=== PATIENT | male | born 1965 | race Caucasian/White ===

== ENCOUNTER 2017-05-08 10:09 | Day surgery (SDC) | payer OTHER ==
[2017-05-08] MEDS ORDERED: diphenhydrAMINE 25 MG CAP PO ONE ×2 (10:15→10:27)
[2017-05-08] MEDS ORDERED: FAMOTIDINE 20 MG TAB PO ONE (10:15)
[2017-05-08] MEDS ORDERED: DIAZEPAM 5 MG TAB PO ONE (10:15)
[2017-05-08] MEDS ORDERED: NS 1,000 ML IV ONE (10:15)
[2017-05-08] MEDS ORDERED: ASPIRIN EC 325 MG TAB PO ONE (10:15)
[2017-05-08] MEDS ORDERED: FAMOTIDINE 20 MG TAB ONE (10:28)
[2017-05-08] MEDS ORDERED: DIAZEPAM 5 MG TAB ONE (10:28)
--- NOTE | 2017-05-08 10:28 | CPEKG ---
Heart Rate: 70 RR Interval: 857 P-R Interval: 164 QRSD Interval: 80 QT Interval: 376 QTC Interval: 406 P [place]: 12 QRS [place]: 20 T Wave [place]: 92 EKG Severity - ABNORMAL ECG - EKG Impression: SINUS RHYTHM EKG Impression: PROBABLE INFERIOR INFARCT, AGE INDETERMINATE EKG Impression: CONSIDER POSTERIOR WALL INVOLVEMENT Electronically Signed By: Simon Sprague 09-May-2017 23:09:30
[2017-05-08] MEDS ORDERED: LIDOCAINE 1% 300 MG/30 ML SDV ONE (10:36)
[2017-05-08] MEDS ORDERED: MIDAZOLAM 2 MG/2 ML VIAL ONE ×4 (10:37→12:34)
[2017-05-08] MEDS ORDERED: IOPAMIDOL (ISOVUE-370) 150 ML BTL IV ONE ×3 (10:37→12:44)
[2017-05-08] MEDS ORDERED: fentaNYL 100 MCG/2 ML INJ ONE ×3 (10:37→12:39)
[2017-05-08 10:46] LABS: % IMMATURE GRANULYOCYTES 0.4 % (0.0-1.1); ABSOLUTE IMMATURE GRANULOCYTES 0.02 10^3/uL (0.00-0.10); ADD DIFF? NO; ADD MORPH? NO; ADD SCAN? NO; ATYPICAL LYMPHOCYTE FLAG 0 (0-99); FRAGMENT RBC FLAG 0 (0-99); HEMATOCRIT 47.5 % (40.0-51.0); HEMOGLOBIN 16.8 g/dL (13.7-17.5); LEFT SHIFT FLG 0 (0-99); LIPEMIA HEMOLYSIS FLAG 90 (0-99); MEAN CELL HEMOGLOBIN 33.2 pg (27.9-34.1); MEAN CELL HEMOGLOBIN CONCENTR. 35.4 g/dL (32.4-36.7); MEAN CELL VOLUME 93.9 fL (81.5-99.8); MEAN PLATELET VOLUME 8.3 fL (8.7-11.7); PLATELET CLUMPS FLAG 0 (0-99); PLATELET COUNT 266 10^3/uL (150-400); RED BLOOD CELL COUNT 5.06 10^6/uL (4.40-6.38); RED CELL DISTRIBUTION WIDTH 11.7 % (11.5-15.2)
--- NOTE | 2017-05-08 10:46 | PDHPUP ---
History & Physical Update H&P update statement: This history and physical update is based on an assessment of the patient which was completed after admission or registration (within 24 hours), but prior to the surgery/procedure. H&P update: H&P reviewed & patient examined, no change in patient's condition since H&P completed
--- NOTE | 2017-05-08 10:46 | PDPROPOC ---
Sedation Plan of Care Sedation Plan of Care: vital signs stable, mental status noted, patient educated of risks, benefits, alternatives, patient can tolerate sedation ASA Classification: ASA 2 Planned drugs: fentanyl, midazolam Mallampati Score: Class 2 Mallampati Reference Image: Patient passed 3-3-2 rule?: Yes
[2017-05-08 10:59] LABS: INR 0.93 (0.83-1.16); PROTIME(PATIENT) 12.7 SEC (12.0-15.0)
[2017-05-08 11:33] LABS: ANION GAP 18 mEq/L (8-16); CALCIUM 10.3 mg/dL (8.5-10.4); CARBON DIOXIDE 23 mEq/l (22-31); CHLORIDE 103 mEq/L (97-110); CHOLESTEROL 243 mg/dL (140-220); CHOLESTEROL/HDL RATIO 4.42 RATIO (1.00-4.97); CREATININE 0.8 mg/dL (0.7-1.3); GLOMERULAR FILTRATION RATE > 60; GLUCOSE 117 mg/dL (70-100); HIGH DENSITY LIPOPROTEIN 55 mg/dL (40-65); MAGNESIUM 1.9 mg/dL (1.6-2.3); NON-HIGH DENSITY LIPOPROTEIN 188 mg/dL (90-129); POTASSIUM 4.3 mEq/L (3.5-5.2); SODIUM 144 mEq/L (134-144)
[2017-05-08 11:34] LABS: TRIGLYCERIDE 446 mg/dL (40-150)
[2017-05-08] MEDS ORDERED: NITROGLYCERIN 0.4 MG BTL SL PRN (13:31)
[2017-05-08] MEDS ORDERED: ONDANSETRON 4 MG/2 ML VIAL IVP PRN (13:31)
[2017-05-08] MEDS ORDERED: ATROPINE SULFATE 1 MG/10 ML SYR IVP PRN (13:31)
[2017-05-08] MEDS ORDERED: clonazePAM 0.5 MG TAB PO PRN (13:32)
[2017-05-08] MEDS ORDERED: TESTOSTERONE IM 100 MG/ML SYRINGE IM SCH (13:45)
--- NOTE | 2017-05-08 20:36 | CPIP ---
[f rep st] INVASIVE CARDIAC PROCEDURE DATE OF PROCEDURE: 05/08/2017 PROCEDURES PERFORMED: 1. Coronary angiography. 2. Left ventricular end-diastolic pressure. 3. Bypass graft angiography. INDICATIONS FOR PROCEDURE: 1. Known coronary artery disease. 2. Chest pain syndrome, concerning for an acute coronary syndrome. ACCESS: The patient was prepped and draped in sterile fashion, 1% lidocaine was used to anesthetize the right inguinal region. A 6-Croatian introducer sheath was placed selectively into the right common femoral artery via modified Seldinger technique. CORONARY ANGIOGRAPHY: A 6-[place]atian JL4 was advanced to the left main coronary artery and images obtain ed. The left main coronary artery bifurcated into an LAD and circumflex coronary arteries. The left main coronary artery appeared normal. The left anterior descending coronary artery is diffusely dis eased. In the proximal vessel, there is a discreet 40% stenosis present. In the midvessel, there is a long segmental 50% to 60% stenosis present. The distal vessel is being filled by a patent VALLE to LAD graft. The circumflex coronary artery is a large vessel. The circumflex coronary artery is dif fusely diseased. In the midvessel, there is a discreet 40% to 50% stenosis present and in the distal vessel there is a discreet 50% to 60% stenosis present. The right coronary artery was not injected as it is noted to be occluded previously. BYPASS GRAFT ANGIOGRAPHY: A 6-[place]ian JR4 was used to engage the saphenous vein graft to OM artery. The saphenous vein graft to OM artery had a proximal 50% stenosis present. This was not flow limitin g, as it was still larger in diameter than the vessel it supplied. A 6-[place]atian JR4 was also used to e ngage the saphenous vein graft to posterior lateral artery. Saphenous vein graft to posterior latera l artery also had a proximal 50% stenosis present. This is not flow limiting as it was greater than the size of the vessel it supplied. A 6-[place]ian JR4 was used to engage the PRETTY to RCA graft. The RI MA to RCA graft was widely patent. A 6-[place]atian JR4 was used to engage the left subclavian artery. Th e 6-Croatian JR4 was then exchanged for 6-Croatian FER catheter. The 6-Croatian FER catheter was used to e ngage the VALLE to LAD graft. The VALLE to LAD graft had 40% to 50% stenosis in the distal anastomosis region. This did not appear to be flow limiting. LEFT VENTRICULAR END-DIASTOLIC PRESSURE: A 6-[place]atian pigtail catheter was advanced into the left vent ricle and left ventricular end-diastolic pressure obtained. The left ventricular end-diastolic press ure was 21 mmHg. LEFT VENTRICULOGRAPHY: Not performed in an effort to spare contrast. COMPLICATIONS: None. CONCLUSIONS: 1. Three-vessel coronary artery disease. 2. Patent bypass grafts to the left anterior descending coronary artery, second obtuse marginal, pos terior lateral, and posterior descending coronary arteries. 3. Elevated left ventricular end-diastolic pressure 21 mmHg. PLAN: Medical management. /[id number]/MODL
[2017-05-08] MEDS ORDERED: NON-FORMULARY NEW DRUG (Fenofibrate [Fenofibrate] 160 MG) PO SCH (21:00)
[2017-05-08] MEDS ORDERED: ATORVASTATIN CALCIUM 40 MG TAB PO SCH (21:00)
[2017-05-09] MEDS ORDERED: LEVOTHYROXINE 150 MCG TAB PO SCH (06:00)
[2017-05-09] MEDS ORDERED: ALPRAZolam 0.5 MG TAB PO SCH (09:00)
[2017-05-09] MEDS ORDERED: LISINOPRIL 20 MG TAB PO SCH (09:00)
[2017-05-09] MEDS ORDERED: Herbals/Supplements -Info Only PO SCH (09:00)
[2017-05-09] MEDS ORDERED: buPROPion XL 150 MG TAB PO SCH (09:00)
[2017-05-09] MEDS ORDERED: ASPIRIN 325 MG TAB PO SCH (09:00)
[2017-05-14] MEDS ORDERED: NON-FORMULARY NEW DRUG (Exenatide Microspheres [Bydureon Pen] 2 MG) SQ SCH (21:00)
== END 2017-05-08 15:44 | disposition home or self-care (01) ==
LOC: FCATH 10:09
PROVIDERS: ATTEND Internal Medicine Cardiovascular Disease
PROC: B2131ZZ Fluoroscopy of Multiple Coronary Artery Bypass Grafts using Low Osmolar Contrast (ICD-10-PCS; principal; 2017-05-08)
PROC: 4A023N7 Measurement of Cardiac Sampling and Pressure, Left Heart, Percutaneous Approach (ICD-10-PCS; principal; 2017-05-08)
DX: I25.810 Atherosclerosis of coronary artery bypass graft(s) without angina pectoris (principal); I10 Essential (primary) hypertension; E11.9 Type 2 diabetes mellitus without complications; E78.5 Hyperlipidemia, unspecified; Z95.1 Presence of aortocoronary bypass graft
CPT/HCPCS: C1760; J1644; J2250; J3010; Q9967

== ENCOUNTER 2017-10-24 07:15 | Inpatient (IN) | payer OTHER ==
[2017-10-24] MEDS ORDERED: ACETAMINOPHEN 500 MG TAB PO ONE (11:18)
[2017-10-24] MEDS ORDERED: GABAPENTIN 300 MG CAP PO ONE (11:18)
[2017-10-24] MEDS ORDERED: ceFAZolin 2 GM/DEXTROSE 100 ML IV ONE (11:18)
[2017-10-24] MEDS ORDERED: LR 1,000 ML IV ONE (11:19)
[2017-10-24] MEDS ORDERED: LIDOCAINE 1% 2 ML INJ ID PRN (11:19)
[2017-10-24] MEDS ORDERED: ceFAZolin 2 GM/SWFI 2 GM/20 ML SYR IVP ONE (11:30)
[2017-10-24] MEDS ORDERED: BUPIVACAINE 0.25% 30 ML SDV ONE (11:42)
[2017-10-24 11:43] LABS: PLATELET COUNT 253 10^3/uL (150-400)
[2017-10-24] MEDS ORDERED: CHLORHEXIDINE GLUC HIBICLENS 118 ML BTL TP ONE (11:43)
[2017-10-24] MEDS ORDERED: BACITRACIN 50,000 UNITS/10 ML SYR IRR ONE (11:43)
[2017-10-24] MEDS ORDERED: THROMBIN (BOVINE) 5,000 UNIT VIAL TP ONE (11:43)
[2017-10-24] MEDS ORDERED: EPINEPHrine 1 MG/ML INJ ONE (11:43)
--- NOTE | 2017-10-24 12:17 | PDANEPAE ---
ANE History of Present Illness l4-l5 tlif ANE Past Medical History - Cardiovascular History Hx Hypertension: Yes Hx Arrhythmias: No Hx Chest Pain: No Hx Coronary Artery / Peripheral Vascular Disease: Yes Hx CHF / Valvular Disease: No Hx Palpitations: No Cardiovascular History Comment: CABG X4 2012. HYPERLIPIDS - Pulmonary History Hx COPD: No Hx Asthma/Reactive Airway Disease: No Hx Recent Upper Respiratory Infection: No Hx Oxygen in Use at Home: No Hx Sleep Apnea: No Sleep Apnea Screening Result - Last Documented: Positive Pulmonary History Comment: DENIES SOB W STAIRS - Neurologic History Hx Cerebrovascular Accident: No Hx Seizures: No Hx Dementia: No - Endocrine History Hx Diabetes: Yes Hypothyroid: Yes Hyperthyroid: No Endocrine History Comment: HYPOTHYROID - Renal History Hx Renal Disorders: No Renal History Comment: KIDNEY STONES - Liver History Hx Hepatic Disorders: No - Neurological & Psychiatric Hx Hx Neurological and Psychiatric Disorders: No Neurological / Psychiatric History Comment: DEPRESSION POST HEART SURG - Cancer History Hx Cancer: No - Congenital Disorder History Hx Congenital Disorders: No - GI History Hx Gastrointestinal Disorders: No - Other Health History Other Health History: PARTIALS LOWER - Chronic Pain History Chronic Pain: No - Surgical History Prior Surgeries: CABG X4 10-11-12. L SHOULDER '12. L ULNAR NERVE TRANSPOSITION. [facility] HERNIA. L ING HERNIA ANE Review of Systems Review of systems is: negative Review of Systems: - Exercise capacity Exercise capacity: >=4 METS METS (RN): 4 METS ANE Patient History - Allergies Allergies/Adverse Reactions: No Known Allergies Allergy (Unverified 10/16/17 17:51) - Home Medications Home Medications: Aspirin [Aspirin 325 mg (*)] 325 mg PO DAILY 03/15/16 [Last Taken 10/17/17] Levothyroxine [Synthroid 150 mcg (*)] 150 mcg PO DAILY06 03/15/16 [Last Taken 04:00] Exenatide Microspheres [Bydureon Pen] 2 mg SQ MO@21 03/21/16 [Last Taken ] FENOFIBRATE 160 mg PO HS 03/21/16 [Last Taken 10/23/17 20:00] ALPRAZolam [Xanax 0.5 MG (*)] 0.25 mg PO DAILY 05/08/17 [Last Taken 10/24/17 04: 00] Atorvastatin Calcium [Lipitor 40 mg (*)] 40 mg PO HS 05/08/17 [Last Taken ] Lisinopril [Zestril 20 mg (*)] 20 mg PO HS 05/08/17 [Last Taken 10/23/17 20:00] Testosterone IM [Testosterone 100mg/ml IM inj (*)] 200 mg IM Q14D 05/08/17 [ Last Taken 09/24/17] buPROPion XL [Wellbutrin Xl] 150 mg PO DAILY 05/08/17 [Last Taken 10/24/17 04:00 ] clonazePAM [Klonopin (*)] 0.5 mg PO HS PRN 05/08/17 [Last Taken 10/23/17 20:00] Metformin HCl [Metformin 1000 mg] 1,000 mg PO DAILY 10/09/17 [Last Taken ] Gabapentin [Neurontin 300 MG (*)] 300 mg PO TID 10/16/17 [Last Taken 10/23/17 20 :00] Herbals/Supplements -Info Only 1 ea PO DAILY 10/16/17 [Last Taken 10/17/17] - NPO status NPO Status: no food or drink >8 hours NPO Since - Liquids (Date): 10/24/17 NPO Since - Liquids (Time): 04:00 NPO Since - Solids (Date): 10/23/17 NPO Since - Solids (Time): 18:00 - Anes Hx Anes Hx: no prior problems - Smoking Hx Smoking Status: Former smoker - Alcohol Use Alcohol Use: Heavy (3/day) - Family Anes Hx Family Anes Hx: none Family Hx Anesthesia Complications: NONE ANE Labs/Vital Signs - Labs Result Diagrams: 10/24/17 11:18 10/24/17 11:18 - Vital Signs Vital Signs: reviewed preoperatively; see RN documention for details Blood Pressure: 137/84 Heart Rate: 73 Respiratory Rate: 20 O2 Sat (%): 94 Height: 175.26 cm Weight: 79.379 kg ANE Physical Exam - Airway Neck exam: FROM Mallampati Score: Class 2 Mouth exam: poor dentition, dentures - Pulmonary Pulmonary: no respiratory distress - Cardiovascular Cardiovascular: regular rate and rhythym - ASA Status ASA Status: III ANE Anesthesia Plan Anesthesia Plan: general endotracheal anesthesia
[2017-10-24] MEDS ORDERED: MIDAZOLAM 2 MG/2 ML VIAL IVP ONE (12:21)
[2017-10-24] MEDS ORDERED: PROPOFOL 200 MG/20 ML VIAL ONE (12:45)
[2017-10-24] MEDS ORDERED: PROPOFOL/EMULSION 500 MG/50 ML BOTTLE IV ONE ×2 (12:45→14:55)
[2017-10-24] MEDS ORDERED: LIDOCAINE 2% 100 MG/5 ML SYR ONE (12:45)
[2017-10-24] MEDS ORDERED: fentaNYL 100 MCG/2 ML INJ ONE ×3 (12:45→16:41)
[2017-10-24] MEDS ORDERED: HYDROmorphONE/DILAUDID 2 MG/ML INJ ONE (12:46)
[2017-10-24] MEDS ORDERED: ROCURONIUM 100 MG/10 ML VIAL ONE (12:47)
[2017-10-24] MEDS ORDERED: KETOROLAC 30 MG/1 ML SDV ONE (15:43)
[2017-10-24] MEDS ORDERED: PROMETHAZINE HCL 25 MG/ML INJ IVP PRN (16:03)
[2017-10-24] MEDS ORDERED: ONDANSETRON 4 MG/2 ML VIAL IVP PRN ×2 (16:03→16:09)
[2017-10-24] MEDS ORDERED: ACETAMINOPHEN 500 MG TAB PO PRN (16:03)
[2017-10-24] MEDS ORDERED: ALBUTEROL 3 ML DEYVIAL IH PRN (16:03)
[2017-10-24] MEDS ORDERED: oxyCODONE IR 5 MG TAB PO PRN (16:03)
[2017-10-24] MEDS ORDERED: NALOXONE HCL 0.4 MG/ML INJ IVP PRN (16:03)
[2017-10-24] MEDS ORDERED: HYDROmorphONE/DILAUDID 2 MG/ML INJ IVP PRN (16:03)
[2017-10-24] MEDS ORDERED: MEPERIDINE 25 MG/0.5 ML AMP IVP PRN (16:03)
--- NOTE | 2017-10-24 16:05 | POSTANESTH ---
Post Anesthetic Evaluation Cardiovascular Status: Normal, Stable Respiratory Status: Normal, Stable Level of Consciousness/Mental Status: Can Participate in Eval Pain Control: Adequate, Prn Tx Ordered Nausea/Vomiting Control: Adequate, Prn Tx Ordered Complications Possibly Related to Anesthesia: None Noted
[2017-10-24] MEDS: fentaNYL 100 MCG/2 ML INJ IVP PRN ×5 (16:08→16:59)
[2017-10-24] MEDS ORDERED: POLYETHYLENE GLYCOL 3350 17 GM PKT PO PRN (16:09)
[2017-10-24] MEDS ORDERED: diphenhydrAMINE 25 MG CAP PO PRN (16:09)
[2017-10-24] MEDS ORDERED: ONDANSETRON DISINTEGRATING 4 MG TAB PO PRN (16:09)
[2017-10-24] MEDS ORDERED: LACTULOSE 20 GM/30 ML UDCUP PO PRN (16:09)
[2017-10-24] MEDS ORDERED: BISACODYL 10 MG SUPP PR PRN (16:09)
[2017-10-24] MEDS ORDERED: METHOCARBAMOL 750 MG TAB PO PRN (16:09)
[2017-10-24] MEDS ORDERED: MAGNESIUM HYDROXIDE 30 ML UDCUP PO PRN (16:09)
--- NOTE | 2017-10-24 16:09 | POSTOPPROG ---
Post Op Note Date of Operation: 10/24/17 Surgeon: Kin David Trimmer And Borer Machine Operator: Sarah Jerry PA-C Anesthesia: GET(General Endotracheal) Pre-op Diagnosis: Lumbar Stenosis with radiculopathy Post-op Diagnosis: same Procedure: Minimally invasive L4/5 Findings: See dicated operative report Inf/Abcess present in the surg proc area at time of surgery?: No Depth: Organ Space EBL: 50-100 Complications: None observed SOAP Progress Note Assessment/Plan: Assessment: Plan: S: Patient in PACU O: NAD, VSS PERRL, EOMI Awake Following commands RIVAS X 4 BLE 5/5 BUE 5/5 Incision c/d/i-dressed A: 51 yo male sp L4/5 TLIF for radiculopathy and lumbar stenosis. P: -Admit to med/surg -Optimize pain management- does not tolerate oxycodone well in the past per pt -PT.OT -Postop x-rays pending -No brace needed -No wright -DVT: TEDs, SCDs, Lovenox ok POD #1 -Dipso- Home tomorrow if doing well and clears therapy 10/24/17 16:06 Objective: Vital Signs Temp Pulse Resp BP Pulse Ox 36.5 C 73 20 137/84 H 94 10/24/17 11:40 10/24/17 12:21 10/24/17 12:21 10/24/17 12:21 10/24/17 12:21 Laboratory Results 10/24/17 11:18 10/24/17 11:18
[2017-10-24] MEDS ORDERED: DIAZEPAM 5 MG/ML 1 ML SYR ONE (16:20)
[2017-10-24] MEDS: DIAZEPAM 5 MG/ML 1 ML SYR IVP PRN ×3 (16:21→16:35)
--- NOTE | 2017-10-24 16:25 | PDMN ---
Medical Necessity Medical necessity: Pt meets INPT criteria per and [facility] [place], [place] S-820 Lumbar Fusion ( IPO surgery).
[2017-10-24] MEDS ORDERED: HYDROmorphONE/DILAUDID 1 MG/ML INJ ONE (16:41)
[2017-10-24] MEDS: HYDROmorphONE/DILAUDID 1 MG/ML INJ IVP PRN ×3 (16:43→17:00)
[2017-10-24] MEDS: HYDROCODONE/APAP 5/325 TAB PO PRN ×2 (17:42→21:52)
--- NOTE | 2017-10-24 17:55 | GOP ---
[f rep st] OPERATIVE REPORT DATE OF OPERATION: 10/24/2017 SURGEON: Kin David MD DIESEL LOCOMOTIVE FIRER/FIREMAN: JACQUES Quiñones ANESTHESIA: General endotracheal. PREOPERATIVE DIAGNOSIS: Spondylolisthesis with severe left lateral recess stenosis at L4-5. POSTOPERATIVE DIAGNOSIS: Spondylolisthesis with severe left lateral recess stenosis at L4-5. PROCEDURE PERFORMED: 1. L4-5 minimally invasive transforaminal lumbar interbody fusion. 2. Placement of interbody device at L4-5. 3. Placement of pedicle screw fixation at L4-5. 4. Complete facetectomy on the left at L4-5. 5. [place] of local autograft. 6. Use of allograft, BMP, and cancellous bone chips. 7. Use of the operative microscope. 8. O arm stereotactic navigation for screw placement. 9. Intraoperative neurophysiologic monitoring, including somatosensory evoked potentials and EMG. FINDINGS: Successful TLIF. SPECIMENS: There were no specimens. ESTIMATED BLOOD LOSS: 50 cc. INDICATIONS: The patient is a 51-year-old man who I saw in clinic with low back pain and some severe left leg pain in L5 distribution. He is found to have spondylolisthesis grade 1 at L4-5 with latera l recess stenosis. We discussed the options and ultimately decided upon a minimally invasive TLIF. DESCRIPTION OF PROCEDURE: After informed consent was obtained from the patient, the patient was brou ght to the operating room and a formal time-out was performed, identifying the patient by name, medic al record number and date of . Preoperative antibiotics were given. The endotracheal tube was placed and general endotracheal anesthesia was smoothly induced. All appropriate leads were placed f or intraoperative neurophysiologic monitoring, including somatosensory evoked potentials and EMG. Th e patient was then turned in the prone position on the Eriberto table and all appropriate pressure poi nts were padded and checked. The lumbar region was then prepped and draped in the normal sterile fas hion. A stab incision was made over the right iliac crest and percutaneous pin for the navigation frame was placed into the iliac crest. An O-arm spin was then obtained showing the relevant anatomy from L3 t o S1, and navigation was then used to plan the lateral Pita-style incisions on both sides with the angle toward the L4-5 pedicles. 10 cc of 0.25% Marcaine with epinephrine was infiltrated in the skin for hemostasis. The left-sided skin incision was then made using a 10 blade and the subcutaneous tissues were dissect ed using monopolar electrocautery. The superficial and deep lumbar fascia were opened and the parasp inous muscles were visualized. The navigated metrics tube was then navigated to the area over the L4 -5 foramen and docked onto the facet joint. Successive dilators were then used to dilate up to 18 mm and a 7 cm x 18 mm quadrant retractor was then placed over the facet joint. Navigation was used to identify the superior and inferior aspects of the foramen, as well as the medial border on the lamina . The muscle was debrided from over the facet joint and the high-speed drill with a 3 mm nita bur was then used to drill troughs just above the L5 pedicle and just below the L4 pedicle. Medially, t he inferior facet of L4 was then disconnected and removed completely. We then drilled off the superi or facet of L5 and the foramen was completely decompressed. Medially, the yellow ligament was remove d, completely decompressing the nerve root in the lateral recess. The exiting L4 nerve root and the traversing L5 nerve root were both visualized and were completely decompressed. At this point, the disk space was visualized and entered. Using successive curettes, the disk was co mpletely removed and the cartilaginous endplates were also removed. A radical diskectomy was perform ed both medially and laterally, completely preparing the endplates. Once this was completely removed and bleeding bone was visualized on the endplates, a piece of BMP was placed across the contralatera l side and generous morselized autograft from the facet joints, combined with some allograft cancello us bone chips were placed into the disk space. This space was then sized for a 9 x 28 mm Medtronic E levate cage, which was packed with some locally harvested autograft and BMP. This was then placed st ereotactically into the disk space and completely expanded. Further autograft and allograft were the n placed into the disk space completely for an interbody fusion. At this point, a second O-arm spin was obtained showing the cage in excellent placement. We then use d the sharp-tip awl to identify the pedicle entry points and each entry point was marked. A 4.5-5.5 mm tap was then used to tap each pedicle at L4 and L5 bilaterally. At L4, 6.5 x 50 mm Medtronic Sole ra screw was placed on the left, a 6.5 x 45 mm screw was placed on the right. At L5, a 6.5 x 50 mm M edtronic Solera screw was placed on the left and a 6.5 x 50 mm screw on the right. Screw placement w as confirmed using another O-arm spin. On the right side, a 4.75 x 30 mm titanium Voyager perico was pl aced, and on the left side, a 4.75 x 35 mm Voyager titanium perico was placed. After the rods were plac ed completely, the locking caps were locked down and final AP and lateral x-rays confirmed good place ment of all hardware. The wounds were copiously irrigated using bacitracin irrigation. The fascia was closed using interru pted 0 Vicryl. The deep dermis was closed using interrupted 2-0 Vicryl, and the skin was closed usin g Dermabond. All neurophysiological monitoring was stable throughout the case. All sponge and needl e counts were correct in the case. FLUIDS AND URINE OUTPUT: Per the anesthesia record. DRAINS: There were no drains. /[id number]/MODL
[2017-10-24] MEDS ORDERED: clonazePAM 0.5 MG TAB PO PRN (18:19)
[2017-10-24] MEDS ORDERED: TESTOSTERONE IM 100 MG/ML SYRINGE IM SCH (18:30)
[2017-10-24] MEDS ORDERED: NON-FORMULARY NEW DRUG (Fenofibrate [Fenofibrate] 160 MG) PO SCH (21:00)
[2017-10-24] MEDS ORDERED: ATORVASTATIN CALCIUM 40 MG TAB PO SCH (21:00)
[2017-10-24] MEDS ORDERED: LISINOPRIL 20 MG TAB PO SCH (21:00)
[2017-10-24] MEDS ORDERED: FENOFIBRATE 145 MG TAB PO SCH (21:00)
[2017-10-24] MEDS: SENNOSIDES/DOCUSATE SODIUM TAB PO SCH (21:51)
[2017-10-24] MEDS: GABAPENTIN 300 MG CAP PO SCH (21:51)
[2017-10-24] MEDS: ceFAZolin 2 GM/SWFI 2 GM/20 ML SYR IVP SCH (21:52)
[2017-10-24] MEDS ORDERED: ceFAZolin 2 GM/DEXTROSE 100 ML IV SCH (22:00)
[2017-10-25] MEDS ORDERED: METHOCARBAMOL 500 MG TAB PO PRN (01:00)
[2017-10-25] MEDS: HYDROCODONE/APAP 5/325 TAB PO PRN (01:53)
[2017-10-25] MEDS ORDERED: HYDROCODONE/APAP 10/325 TAB PO PRN (05:50)
[2017-10-25] MEDS ORDERED: LEVOTHYROXINE 150 MCG TAB PO SCH (06:00)
[2017-10-25] MEDS: ceFAZolin 2 GM/SWFI 2 GM/20 ML SYR IVP SCH (06:13)
[2017-10-25] MEDS ORDERED: HYDROmorphONE/DILAUDID 2 MG TAB PO ONE (06:30)
[2017-10-25] MEDS ORDERED: ENOXAPARIN 40 MG/0.4 ML SYR SC SCH (09:00)
[2017-10-25] MEDS ORDERED: NON-FORMULARY NEW DRUG (Metformin Hcl [Metformin 1000 Mg] 1,000 MG) PO SCH (09:00)
[2017-10-25] MEDS ORDERED: buPROPion XL 150 MG TAB PO SCH (09:00)
[2017-10-25] MEDS ORDERED: ALPRAZolam 0.5 MG TAB PO SCH (09:00)
[2017-10-25] MEDS ORDERED: metFORMIN HCL 500 MG TAB PO SCH (09:00)
[2017-10-25] MEDS: GABAPENTIN 300 MG CAP PO SCH (09:52)
[2017-10-25] MEDS: SENNOSIDES/DOCUSATE SODIUM TAB PO SCH (09:53)
--- NOTE | 2017-10-25 10:07 | ASMTCASEMG ---
Living Arrangements What is your living Answers: With Spouse arrangement? Who do you live with? Type Of Residence What kind of residence do Answers: House you live in? Discharge Plan Comments Coordination Status Comments Notes: pt is a 51 y/o man admitted for a L4-5 stenosis. Therapies have been ordered and awaiting recommendations. Needs are TBD at this time. CM to follow. Plan: TBD Date Signed: 10/25/2017 10:07 AM Electronically Signed By:JAQUELIN Alexandre
--- NOTE | 2017-10-25 12:20 | NEUSURGPN ---
Assessment/Plan: Assessment: Plan: S: Patient states he has back pain as expected, but legs are feeling much better. Pain controlled on [place]. Denies fever, chills. O: NAD, VSS PERRL, EOMI Awake Following commands RIVAS X 4 BLE 5/5 BUE 5/5 Incision c/d/i-dressed A: 51 yo male sp L4/5 TLIF for radiculopathy and lumbar stenosis. P: -Overall doing well and has expected back pain but tolerable -Optimize pain management- Will send home with Hydrocodone 10 -PT.OT -Postop x-rays show stable hardware placement -No brace needed -DVT: TEDs, SCDs, Lovenox ok POD #1 -Dipso- Home today if clears therapies and pain remains under control. 10/24/17 16:06 - Physician Discussed Patient with Dr.: David Patient Seen by : Frankie Neurosurgery Physical Exam - Vitals, I&O, Labs I and O 10/24/17 10/25/17 10/26/17 05:59 05:59 05:59 Intake Total 1280 Output Total 475 700 Balance 805 -700 Weight 79.379 kg Intake: Oral (ml) 380 IV Intake (ml) 900 Output: Urine (ml) 450 700 Urinal 450 700 Estimated Blood Loss (ml) 25 Other: Intake Quantity Yes Sufficient Number of Voids Urinal 1 1 Vital Signs Temp Pulse Resp BP Pulse Ox 36.9 C 74 18 155/83 H 96 10/25/17 07:51 10/25/17 07:51 10/25/17 04:00 10/25/17 08:00 10/25/17 07:51 Laboratory Results 10/24/17 11:18 10/24/17 11:18 ICD10 Worksheet Patient Problems: Problems Problem Status Onset Spinal stenosis of lumbar region with radiculopathy Acute - ICD10 Problem Qualifiers (1) Spinal stenosis of lumbar region with radiculopathy
[2017-10-25 12:26] VITALS: BP 142/88
[2017-10-25] MEDS ORDERED: PNEUMOCOCCAL 0.5ML VACCINE VIAL IM ONE (13:01)
--- NOTE | 2017-10-25 15:31 | ASMTCMCOM ---
CM Note CM Note Notes: Pt medically stable for d/c, no CM d/c needs identified. Date Signed: 10/25/2017 03:30 PM Electronically Signed By:ARJUN Gong
[2017-10-29] MEDS ORDERED: (Exenatide Microspheres [Bydureon Pen] 2 MG) SQ SCH (21:00)
[2017-10-29] MEDS ORDERED: NON-FORMULARY NEW DRUG (Exenatide Microspheres [Bydureon Pen] 2 MG) SQ SCH (21:00)
[2017-11-07] MEDS ORDERED: TESTOSTERONE IM 100 MG/ML SYRINGE IM SCH (11:11)
== END 2017-10-25 14:01 | disposition home or self-care (01) | DRG 460 ==
LOC: F3N 10:46
PROVIDERS: ADMIT Neurological Surgery; ATTEND Neurological Surgery
DX: M43.16 Spondylolisthesis, lumbar region (principal); M48.061 Spinal stenosis, lumbar region without neurogenic claudication; M54.16 Radiculopathy, lumbar region; I10 Essential (primary) hypertension; E78.5 Hyperlipidemia, unspecified; G47.30 Sleep apnea, unspecified; E03.9 Hypothyroidism, unspecified; Z95.1 Presence of aortocoronary bypass graft; Z87.891 Personal history of nicotine dependence
CPT/HCPCS: 97116-GP; 97161-GP; 97165-GO; C1713; C1762; G0009; J0171; J0690; J1170; J1650; J1885; J2001; J2250; J2704; J3010; J3360

== ENCOUNTER → 2018-02-18 | Outpatient (CLI) | payer OTHER | LOC: FIMAGING 09:12 | PROVIDERS: ATTEND Physician Assistant | DX: Z09 Encounter for follow-up examination after completed treatment for conditions other than malignant neoplasm (principal); M43.16 Spondylolisthesis, lumbar region; M47.26 Other spondylosis with radiculopathy, lumbar region; M89.38 Hypertrophy of bone, other site; Z98.1 Arthrodesis status ==

== ENCOUNTER → 2018-05-29 | Outpatient (CLI) | payer OTHER | LOC: CIMAGING 09:46 | PROVIDERS: ATTEND Physician Assistant | DX: Z98.1 Arthrodesis status (principal) | CPT/HCPCS: 72100-PO ==

== ENCOUNTER → 2018-11-14 | Outpatient (CLI) | payer OTHER | LOC: CIMAGING 13:39 ==